=== PATIENT | male | born 1975 | race Two or more races ===

== ENCOUNTER → 2017-01-13 | Outpatient (CLI) | payer OTHER, BC ==
--- NOTE | 2017-01-14 06:51 | REP ---
CHEST, TWO VIEWS: COMPARISON: 08/25/2010. There is no evidence of acute infiltrate. No pleural effusion is seen. The heart is normal in size. The mediastinal silhouette is unremarkable. The visualized osseous structures are intact. There is somewhat poor ventilation. IMPRESSION: No acute pulmonary disease. Signed by Clayton Melo MD 01/14/2017 07:23 P
== END ==
LOC: M LRY 14:44
PROVIDERS: ATTEND Nurse Practitioner Family
DX: R06.02 Shortness of breath (principal)

== ENCOUNTER → 2021-02-18 | Outpatient (CLI) | payer BC, OTHER, SELFPAY ==
[~2021-02-18] MED LIST: FAMO40TA3 PO; FLUTISP NARES; METO50TA7 PO; ROSU40TA4 PO; SUCR1TA PO
== END ==
LOC: M LABSMTC 10:10
PROVIDERS: ATTEND Surgery
DX: Z01.812 Encounter for preprocedural laboratory examination (principal); Z20.822 Contact with and (suspected) exposure to COVID-19

== ENCOUNTER → 2021-04-29 | Outpatient (CLI) | payer OTHER ==
[~2021-04-29] MED LIST changes: +VITMTA PO
== END ==
LOC: M LABSMTC 09:07
PROVIDERS: ATTEND Anesthesiology
DX: Z01.818 Encounter for other preprocedural examination (principal); Z11.52 Encounter for screening for COVID-19

== ENCOUNTER 2021-05-04 06:32 | Day surgery (SDC) | payer OTHER ==
[~2021-05-04] VITALS: Ht 185.4 cm; Wt 108.0 kg
[~2021-05-04 06:32] MED LIST changes: +LIDOCAINE 2% 100MG/5ML SDV (FOR ANES.) As Ordered ONE; +NS 1,000 ML IV ONE; +propofoL 200 MG/20 ML VIAL As Ordered ONE
--- OUTSIDE RECORDS SUMMARY | 2021-05-04 06:36 | CCD ---
Author Author [facility] Organization [facility] Address Unknown Phone Unavailable Care Team Providers Care Molding Fitter Name Role Phone BRYDEN, A MAEVE DO Unavailable Unavailable BRYDEN, A MAEVE DO Unavailable Unavailable BRYDEN, A MAEVE DO Unavailable Unavailable BRYDEN, A MAEVE DO Unavailable Unavailable BRYDEN, A MAEVE DO Unavailable Unavailable BRYDEN, A MAEVE DO Unavailable Unavailable BRYDEN, A MAEVE DO Unavailable Unavailable BRYDEN, A MAEVE DO Unavailable Unavailable BRYDEN, A MAEVE DO Unavailable Unavailable BRYDEN, A MAEVE DO Unavailable Unavailable BRYDEN, A MAEVE DO Unavailable Unavailable BRYDEN, A MAEVE DO Unavailable Unavailable BRYDEN, A MAEVE DO Unavailable Unavailable BRYDEN, A MAEVE DO Unavailable Unavailable BRYDEN, A MAEVE DO Unavailable Unavailable BRYDEN, A MAEVE DO Unavailable Unavailable BRYDEN, A MAEVE DO Unavailable Unavailable BRYDEN, A MAEVE DO Unavailable Unavailable BRYDEN, A MAEVE DO Unavailable Unavailable BRYDEN, A MAEVE DO Unavailable Unavailable BRYDEN, A MAEVE DO Unavailable Unavailable BRYDEN, A MAEVE DO Unavailable Unavailable BRYDEN, A MAEVE DO Unavailable Unavailable BRYDEN, A MAEVE DO Unavailable Unavailable BRYDEN, A MAEVE DO Unavailable Unavailable BRYDEN, A MAEVE DO Unavailable Unavailable BRYDEN, A MAEVE DO Unavailable Unavailable BRYDEN, A MAEVE DO Unavailable Unavailable BRYDEN, A MAEVE DO Unavailable Unavailable Re-disclosure Warning The records that you are about to access may contain information from federally-assisted alcohol or drug abuse programs. If such information is present, then the following federally mandated warning applies: This information has been disclosed to you from records protected by federal confidentiality rules (42 CFR part 2). The federal rules prohibit you from making any further disclosure of this information unless further disclosure is expressly permitted by the written consent of the person to whom it pertains or as otherwise permitted by 42 CFR part 2. A general authorization for the release of medical or other information is NOT sufficient for this purpose. The Federal rules restrict any use of the information to criminally investigate or prosecute any alcohol or drug abuse patient.The records that you are about to access may contain highly sensitive health information, the redisclosure of which is protected by Article 27-F of the [facility] Public Health law. If you continue you may have access to information: Regarding HIV / AIDS; Provided by facilities licensed or operated by the [facility] Office of Mental Health; or Provided by the [facility] Office for People With Developmental Disabilities. If such information is present, then the following [facility] mandated warning applies: This information has been disclosed to you from confidential records which are protected by state law. State law prohibits you from making any further disclosure of this information without the specific written consent of the person to whom it pertains, or as otherwise permitted by law. Any unauthorized further disclosure in violation of state law may result in a fine or custodial sentence or both. A general authorization for the release of medical or other information is NOT sufficient authorization for further disc losure. Family History Family Member Name Family Member Gender Family Member Status Date o f Status Description Data Source(s) Unknown Unknown Encounters Encounter Providers Location Date Indications Data Source(s ) Outpatient Attender: MAEVE Walker/Anny/Deacon/Mateusz ndl 12/30/2020 09:30:00 AM EDT [facility] ([facility]) Outpatient 11/08/2020 11:39:01 AM EDT - 021 11:39:29 AM EDT [facility] ([facility]) Immunizations Vaccine Date Status Description Data Source(s) COVID-19 VACCINE Pfizer 12/06/2020 12:00:00 AM EDT completed [facility] Vaccine Series Complete: YESThis Data wa s Submitted to [facility] [employer]. COVID-19 VACC, MRNA(PFIZER)/PF 11/15/2020 12:00:00 AM EDT completed [facility] COVID-19 VACCINE Pfizer 11/15/2020 12:00:00 AM EDT completed [facility] Vaccine Series Complete: NOThis Data was Submitted to [facility] [employer]. Medications Medication Brand Name Start Date Product Form Dose Route Admi nistrative Instructions Pharmacy Instructions Status Indications Reaction Description Data Source(s) Sucralfate 1000 MG Oral Tablet Sucralfate 12/30/2020 12:00:00 AM EDT ORAL active [facility] ([facility]) Insurance Providers Payer name Policy type / Coverage type Policy ID Covered alliance party ID Covered alliance party's relationship to hayes Policy Hayes Plan Information [facility] BLUE [id number] SP [id number] [employer] [facility] [id number] SP [id number] OTHER WORKERS COMPENSATION [id number] SP [id number] CHARTER (PA/ RS) FIELD OPERATIONS (FLDOP) emp [id number] Employee [id number] [facility] Blue Cross and Blue [facility] Blue Cross/B lue Shield [id number] Self [id number] [facility] [employer] VA Plan/ [id number] Self [id number] [employer] Blue Cross and Blue Shield [facility] Blue Cross/B lue Shield [id number] Self [id number] O UNAVAILABLE UNAVAILA BLE BC/BS [facility] [id number] Self OTHER WORKERS COMPENSATI P [id number] S [id number] [employer] [place] S [id number] S [id number] ANSI-Not a Secondary Insurance [id number] SELF PAY ONLY [id number] SP [id number] [employer] VA CCN [id number] SP [id number] [facility] [id number] SP [id number] 'S ADMINISTRATION [id number] SP [id number] [facility] VA CHOICE [id number] SP [id number] [facility] WORK COMP UNAVAILABLE SP UNAVAILABLE Problems, Conditions, and Diagnoses Code Display Name Description Problem Type Effective Dates Data Source(s) 32583490 Allergic asthma without status asthmatic us Allergic asthma without status asthmaticus Problem 12/30/2020 12:00:00 AM EDT [facility] [id number] Essential hypertension Essential hypertension Problem 12/30/2020 12:00:00 AM EDT [facility] Surgeries/Procedures Procedure Description Date Indications Data Source(s) OFFICE OUTPATIENT NEW 45 MINUTES 12/30/2020 12:00:00 A M EDT [facility] Results ID Date Data Source [id number] 04/29/2021 09:00:00 AM EDT [facility] Name Value Range Interpretation Code Description Data Katelyn rce(s) Supporting Document(s) SARS-CoV-2 (COVID-19) RNA [Presence] in Respiratory specimen by FIDEL with probe detection Not Detected [facility] This lab was ordered by [facility] and reported by [facility]. ID Date Data Source [id number] 06/01/2020 12:00:00 AM EST [facility] Name Value Range Interpretation Code Description Data Katelyn rce(s) Supporting Document(s) SARS coronavirus 2 RNA [Presence] in Res piratory specimen by FIDEL with probe detection [facility] This lab was ordered by [facility] Saxena and reported by [facility]. Procedure Social History No Information Vital Signs ID Date Data Source UNK Name Value Range Interpretation Code Description Data Source(s) Body surface area Derived from formula 2.37 m2 2.37 m2 [facility] ([facility]) Systolic blood pressure 128 mm[Hg] 128 mm[Hg] [facility] ([facility]) Diastolic blood pressure 86 mm[Hg] 86 mm[Hg] [facility] ([facility]) Body height 74 [in_i] 74 [in_i] [facility] ([facility]) 6'2" Body weight 245.38 [lb_av] 245.38 [lb_av] [facility] ([facility]) Body mass index (BMI) [Ratio] 31.5 kg/m2 31.5 k g/m2 [facility] ([facility]) [facility] body weight 190 [lb_av] 190 [lb_av] [facility] ([facility]) Body weight 111.302 kg 111.302 kg [facility] ([facility], )
[2021-05-04] MEDS ORDERED: LIDOCAINE 2% 100MG/5ML SDV (FOR ANES.) As Ordered ONE (07:41)
[2021-05-04] MEDS ORDERED: fentaNYL 100 MCG/2 ML INJECTION (J3010) As Ordered ONE (07:41)
[2021-05-04] MEDS ORDERED: propofoL 500 MG/50 ML VIAL As Ordered ONE (07:41)
--- NOTE | 2021-05-04 08:01 | ROOR ---
Patient Name: Marvin Wesley Procedure Date: 05/04/2021 7:32 AM Date of : 1975 Age: 45 Room: [facility] Gender: Male Note Status: Finalized Procedure: Upper GI endoscopy Indications: Heartburn Providers: DO Catherine Munguia MD: [facility], Admin. Requesting Provider: Medicines: Propofol per Anesthesia Complications: No immediate complications. Procedure: Pre-Anesthesia Assessment: - Prior to the procedure, a History and Physical was performed, and patient medications and allergies were reviewed. The patient is competent. The risks and benefits of the procedure and the sedation options and risks were discussed with the patient. All questions were answered and informed consent was obtained. Patient identification and proposed procedure were verified by the physician, the nurse, the anesthesiologist and the licensed veterinary technician in the endoscopy suite. Mental Status Examination: alert and oriented. Airway Examination: normal oropharyngeal airway and neck mobility. Respiratory Examination: clear to auscultation. CV Examination: normal. Prophylactic Antibiotics: The patient does not require prophylactic antibiotics. Prior Anticoagulants: The patient has taken no previous anticoagulant or antiplatelet agents. ASA Grade Assessment: II - A patient with mild systemic disease. After reviewing the risks and benefits, the patient was deemed in satisfactory condition to undergo the procedure. The anesthesia plan was to use monitored anesthesia care (MAC). Immediately prior to administration of medications, the patient was re-assessed for adequacy to receive sedatives. The heart rate, respiratory rate, oxygen saturations, blood pressure, adequacy of pulmonary ventilation, and response to care were monitored throughout the procedure. The physical status of the patient was re-assessed after the procedure. The Endoscope was introduced through the mouth, and advanced to the second part of duodenum. The upper GI endoscopy was accomplished without difficulty. The patient tolerated the procedure well. Findings: The Z-line was irregular. Biopsies were taken with a cold forceps for histology. Estimated blood loss was minimal. The entire examined stomach was normal. Biopsies were taken with a cold forceps for Helicobacter pylori testing. Estimated blood loss was minimal. Impression: - Z-line irregular. Biopsied. - Normal stomach. Biopsied. Recommendation: - Patient has a contact number available for emergencies. The signs and symptoms of potential delayed complications were discussed with the patient. Return to normal activities tomorrow. Written discharge instructions were provided to the patient. - Await pathology results. Procedure Code(s): --- Professional --- 30192, Esophagogastroduodenoscopy, flexible, transoral; with biopsy, single or multiple Diagnosis Code(s): --- Professional --- K22.8, Other specified diseases of esophagus R12, Heartburn CPT copyright 2019 [employer]. All rights reserved. The codes documented in this report are preliminary and upon k9 handler review may be revised to meet current compliance requirements. Clayton Guerra DO 05/04/2021 8:01:07 AM Electronically signed by Clayton Guerra DO Number of Addenda: 0 Note Initiated On: 05/04/2021 7:32 AM Estimated Blood Loss: Estimated blood loss was minimal.
--- NOTE | 2021-05-04 08:04 | ROOR ---
Patient Name: Marvin Wesley Procedure Date: 05/04/2021 7:32 AM Date of : 1975 Age: 45 Room: [facility] Gender: Male Note Status: Finalized Procedure: Colonoscopy Indications: Screening in patient at increased risk: Family history of 1st-degree relative with colorectal cancer before age 60 years Providers: DO Catherine Munguia MD: [facility], Admin. Requesting Provider: Medicines: Propofol per Anesthesia Complications: No immediate complications. Procedure: Pre-Anesthesia Assessment: - Prior to the procedure, a History and Physical was performed, and patient medications and allergies were reviewed. The patient is competent. The risks and benefits of the procedure and the sedation options and risks were discussed with the patient. All questions were answered and informed consent was obtained. Patient identification and proposed procedure were verified by the physician, the nurse, the anesthesiologist and the vending machine technician in the endoscopy suite. Mental Status Examination: alert and oriented. Airway Examination: normal oropharyngeal airway and neck mobility. Respiratory Examination: clear to auscultation. CV Examination: normal. Prophylactic Antibiotics: The patient does not require prophylactic antibiotics. Prior Anticoagulants: The patient has taken no previous anticoagulant or antiplatelet agents. ASA Grade Assessment: II - A patient with mild systemic disease. After reviewing the risks and benefits, the patient was deemed in satisfactory condition to undergo the procedure. The anesthesia plan was to use monitored anesthesia care (MAC). Immediately prior to administration of medications, the patient was re-assessed for adequacy to receive sedatives. The heart rate, respiratory rate, oxygen saturations, blood pressure, adequacy of pulmonary ventilation, and response to care were monitored throughout the procedure. The physical status of the patient was re-assessed after the procedure. The Colonoscope was introduced through the anus and advanced to the cecum, identified by appendiceal orifice and ileocecal valve. The colonoscopy was performed without difficulty. The patient tolerated the procedure well. Findings: A less than 5 mm polyp was found in the proximal transverse colon. The polyp was hyperplastic. The polyp was removed with a jumbo cold forceps. Resection and retrieval were complete. Estimated blood loss was minimal. Non-bleeding internal hemorrhoids were found during retroflexion. The hemorrhoids were mild and Grade II (internal hemorrhoids that prolapse but reduce spontaneously). Impression: - One less than 5 mm polyp in the proximal transverse colon, removed with a jumbo cold forceps. Resected and retrieved. - Non-bleeding internal hemorrhoids. Recommendation: - Patient has a contact number available for emergencies. The signs and symptoms of potential delayed complications were discussed with the patient. Return to normal activities tomorrow. Written discharge instructions were provided to the patient. - Await pathology results. - Repeat colonoscopy in 3 - 5 years for surveillance based on pathology results. - Return to my office at appointment to be scheduled. Procedure Code(s): --- Professional --- 65561, Colonoscopy, flexible; with biopsy, single or multiple Diagnosis Code(s): --- Professional --- Z80.0, Family history of malignant neoplasm of digestive organs K63.5, Polyp of colon K64.1, Second degree hemorrhoids CPT copyright 2019 [employer]. All rights reserved. The codes documented in this report are preliminary and upon orthotist/prosthetist review may be revised to meet current compliance requirements. Clayton Guerra DO 05/04/2021 8:04:08 AM Electronically signed by Clayton Bryden , DO Number of Addenda: 0 Note Initiated On: 05/04/2021 7:32 AM Estimated Blood Loss: Estimated blood loss was minimal.
[2021-05-04 08:20] VITALS: BP 111/78
== END 2021-05-04 08:25 | disposition home or self-care (01) ==
LOC: M OPP 06:32
PROVIDERS: ATTEND Surgery
DX: R12 Heartburn (principal); D12.3 Benign neoplasm of transverse colon; K64.1 Second degree hemorrhoids; K22.89 Other specified disease of esophagus; Z80.0 Family history of malignant neoplasm of digestive organs; Z12.11 Encounter for screening for malignant neoplasm of colon
CPT/HCPCS: 43239; 45380; 88305; J3010

== ENCOUNTER → 2021-06-06 | Outpatient (REF) ==
[~2021-06-06] MED LIST changes: -LIDOCAINE 2% 100MG/5ML SDV (FOR ANES.) As Ordered ONE; -NS 1,000 ML IV ONE; -propofoL 200 MG/20 ML VIAL As Ordered ONE
== END ==
LOC: M LABSMTC 09:17
PROVIDERS: ATTEND Pediatrics
DX: Z11.52 Encounter for screening for COVID-19 (principal)

== ENCOUNTER → 2021-07-01 | Outpatient (REF) | LOC: M LABSMTC 10:38 | PROVIDERS: ATTEND Pediatrics | DX: Z11.52 Encounter for screening for COVID-19 (principal) ==

== ENCOUNTER 2021-07-05 15:52 | Emergency (ER) | payer OTHER ==
[~2021-07-05] VITALS: Ht 185.4 cm; Wt 93.2 kg
[2021-07-05 15:52] VITALS: BP 134/77
== END 2021-07-05 19:11 | disposition left against medical advice (07) ==
LOC: M ED 15:52
DX: Z53.21 Procedure and treatment not carried out due to patient leaving prior to being seen by health care provider (principal)